=== PATIENT | female | born 1985 ===

== ENCOUNTER 2018-09-19 09:13 | Day surgery (SDC) | payer OTHER ==
[2018-09-18 09:39] VITALS: BMI 25.0
[2018-09-19] MEDS ORDERED: fentaNYL CITRATE 250 MCG/5 ML VIAL ONE (10:34)
[2018-09-19] MEDS ORDERED: ROCURONIUM BROMIDE 50 MG/5 ML VIAL ONE ×4 (10:34→12:34)
[2018-09-19] MEDS ORDERED: MIDAZOLAM HCL 2 MG/2 ML SINGLE DOSE VIAL ONE (10:35)
[2018-09-19] MEDS ORDERED: PROPOFOL 20 ML ONE (10:35)
[2018-09-19] MEDS ORDERED: ceFAZolin SODIUM 1 GM VIAL IVPB ONE (10:40)
[2018-09-19] MEDS ORDERED: ONDANSETRON 4 MG/2 ML VIAL IVPUSH PRN (10:51)
[2018-09-19] MEDS ORDERED: BUPIVACAINE HCL/PF 0.5% (5MG/ML) 10 ML VIAL IJ ONE (10:59)
[2018-09-19] MEDS ORDERED: LACTATED RINGERS SOLUTION 1,000 ML IV SCH (11:00)
[2018-09-19] MEDS ORDERED: DESFLURANE GAS 240 ML BOTTLE IH ONE (12:01)
[2018-09-19] MEDS ORDERED: NEOSTIGMINE METHYLSULFATE 0.5 MG/ML - 10 ML MDV ONE (12:55)
[2018-09-19] MEDS ORDERED: GLYCOPYRROLATE 0.2 MG/1 ML VIAL ONE (12:55)
--- NOTE | 2018-09-19 13:23 | OP ---
Operative Note - Note: Operative Date: 09/19/18 Pre-Operative Diagnosis: Left ovarian cyst, Left lower quadrant pain Operation: Robotic assisted resection Left major ovarian Teratoma, lysis of adhesions, resection Rt ovarian dermoid cyst, Resection Rt ovarian simple cyst Post-Operative Diagnosis: Other (Left ovarian Teratoma, Right dermoid ovarian cyst, Right simple ovarian cyst, pelvic adhesion) Surgeon: Kwasi Jorgensen Taxation Consultant: Frederick Sal Anesthesia: General Estimated Blood Loss (mls): 10 Operative Report Dictated: Yes
--- NOTE | 2018-09-19 13:23 | SURG ---
Surgery Commanding Officer Traffic Division Note Commanding Officer Traffic Division: Frederick Sal PA-C Date of Service: 09/19/18 Diagnosis: Left ovarian Teratoma, Right dermoid ovarian cyst, Right simple ovarian cyst, pelvic adhesion Procedure: Robotic assisted resection Left major ovarian Teratoma, lysis of adhesions, resection Rt ovarian dermoid cyst, Resection Rt ovarian simple cyst I was present for the entirety of the operative procedure. For further detail, please refer to operative report. Visit type - Case Type Case Type: Scheduled - Emergency Emergency Visit: No - New patient This patient is new to me today: Yes Date on this admission: 09/19/18
[2018-09-19] MEDS ORDERED: PHENAZOPYRIDINE HCL 100 MG TABLET (FP) PO ONE (13:42)
[2018-09-19] MEDS ORDERED: CEFAZOLIN 1 GM/D5W 1 GM/50 ML BAG IVPB ONE (13:42)
--- NOTE | 2018-09-19 16:20 | OP ---
DATE OF OPERATION: 09/19/2018 PREOPERATIVE DIAGNOSIS: Bilateral ovarian benign teratomas. POSTOPERATIVE DIAGNOSIS: Bilateral ovarian benign teratomas. Left ovarian plain cyst. Abdominal adhesions. SURGEON: Joslyn Villalpando M.D. LITHOGRAPHIC RETOUCHER APPRENTICE: [place] ANESTHESIA: General. OPERATION: 1. Robotic resection of bilateral benign teratomas and of right ovarian simple cyst. 2. Lysis of adhesions. DESCRIPTION OF PROCEDURE: Under general anesthesia in dorsal lithotomy position , patient was examined. Large left ovarian cyst was palpated and both on examination and during laparoscopy was assessed at about 8 cm. Right sided cyst was much smaller. Uterus was normal size with small posterior fundal myoma about 3 cm. Right-sided adhesions between ascending colon and cecum and abdominal sidewall were also noted. Appendix was visualized and appeared normal other than with fecalith. No other pathology was noted. Abdomen was insufflated with carbon dioxide that was entered into the peritoneal cavity with Veress needle through intraumbilical 8-mm incision. [place] trocar was placed, and under direct vision, 4 other ports were inserted. On the right there were two 8-mm ports, on the left the lateral was 8 mm, and the more medial was 12 mm for Airseal. With ports in place, XI [place] robot was docked. [place] scissors connected to monopolar current, fenestrated bipolar device connected to bipolar current and to [place] devices were used in different configurations throughout the case. Procedure was started by lysis of adhesions and freeing cecum and ascending colon. That allowed the most lateral right sided ports to operate. Large left ovarian cyst was fixed in place, and capsule was incised. Long and painstaking dissection was then carried out. Small leak happened during the dissection and extra liquid fat was thoroughly suctioned. Large cyst was fully excised and parked in the cul-de-sac. Ovary was examined, and hemostasis was assured. Good amount of ovarian tissue was present. At that point, using EndoCatch, resected dermoid was removed with some difficulty because of its size. Pelvis was lavaged. Attention was turned to the right ovary. Initial consideration was not to resect the small dermoid, but it appeared larger on direct examination. In addition, ovary had a good deal of rotational mobility and it could very easily go into torsion. Decision was then made to remove the smaller dermoid as well. Capsule was incised using monopolar scissors and dermoid cyst was excised. The other cyst appeared to be a simple cyst, was drained, and the lining was removed in pieces. Hemostasis was assured, and the right ovary was in good shape. Left and right dermoid were sent as specimens number 1 and 2. Part of the capsule of the simple cyst was sent as specimen number 3. Pelvis was thoroughly lavaged until there was no adipose tissue seen anywhere. It was examined and it was within normal limits. Under direct vision, 12-mm incision was closed with [id number] Vicryl 0 suture on the fascia. Defect was completely closed. All skin incisions were then secured with Biosyn 3-0 subcuticular sutures. There was no bleeding, and they were properly dressed. Total blood loss was about 10 mL. Patient tolerated procedure very well. She was awakened and transferred to the PACU stable and comfortable. MD SEGUN DAMICO/[id number] MTDD
[2018-09-19 17:16] VITALS: BP 123/70; PULSE 96; TEMP 98.5
--- NOTE | 2018-09-21 11:50 | PATH ---
Surgical Pathology Report Patient Name: DANIELLE CUMMINGS [facility]. Rec. #: [id number] /Age/Gender: 1985 (Age: 33) / F Account: [id number] Location: [facility] SURGICAL Taken: 09/19/2018 Received: 09/20/2018 Reported: 09/21/2018 Physicians: Kwasi Jorgensen MD Specimen(s) Received A: LEFT OVARIAN DERMOID CYST B: RIGHT PLAIN OVARIAN CYST C: PART OF RIGHT PLAIN OVARIAN CYST Clinical History Left ovarian cyst, left lower quadrant pain Final Diagnosis A. LEFT OVARIAN CYST, EXCISION: MATURE CYSTIC TERATOMA. NO IMMATURE ELEMENTS IDENTIFIED. B. RIGHT OVARIAN CYST, EXCISION: MATURE CYSTIC TERATOMA. NO IMMATURE ELEMENTS IDENTIFIED. C. PART OF RIGHT OVARIAN CYST, EXCISION: BENIGN FOLLICULAR/LUTEAL CYST. Electronically Signed Rush Lopez M.D. Gross Description A. Received in formalin labeled "left ovarian dermoid cyst," is an 8.5 x 6.5 x 2.0 cm aggregate of multiple portions of a disrupted cyst. The outer surface is moore catalan and smooth with focal defects. The lumen contains abundant hair and moore sebaceous material. Sectioning reveals focally calcified material. Fisher Trot Line sections are submitted in 4 cassettes with cassette #1 following decalcification. B. Received in formalin labeled "right plain ovarian cyst," is a 4.0 x 3.0 x 2.6 cm intact cystic structure. The outer surface is moore and smooth. Sectioning reveals abundant hair within the lumen. The cyst wall displays focal calcifications and adipose tissue. Fisher Trot Line sections are submitted in 5 cassettes. C. Received in formalin labeled "part of right plain ovarian cyst," is a 1.2 x 0.6 x 0.2 cm moore catalan fragment of soft tissue. The specimen is submitted in toto in one cassette. /09/20/2018 saudi09/20/2018
== END 2018-09-19 16:55 | disposition home or self-care (01) ==
LOC: JASU-SURG 09:13
PROVIDERS: ATTEND Specialist
PROC: 0DNK4ZZ Release Ascending Colon, Percutaneous Endoscopic Approach (ICD-10-PCS; 2018-09-19)
PROC: 0DNH4ZZ Release Cecum, Percutaneous Endoscopic Approach (ICD-10-PCS; 2018-09-19)
PROC: 0UB24ZZ Excision of Bilateral Ovaries, Percutaneous Endoscopic Approach (ICD-10-PCS; principal; 2018-09-19 10:30)
DX: N83.291 Other ovarian cyst, right side (principal); N83.292 Other ovarian cyst, left side; N73.6 Female pelvic peritoneal adhesions (postinfective)
CPT/HCPCS: 58662; S2900; 84703; 88305-TC; 88307-TC; 94760